=== PATIENT | female | born 1955 | race Caucasian/White ===

== ENCOUNTER 2017-06-28 15:56 | Emergency (ER) | payer OTHER ==
[2017-06-28] MEDS: SOD CHLORIDE 0.9% 500 ML IV (19:22)
[2017-06-28 20:10] LABS: ADD MAN DIFF? NO
[2017-06-28 20:13] LABS: WHITE BLOOD COUNT 11.8 10^3/ul (4.8-10.8)
[2017-06-28 20:13] LABS: BASOPHILS % 0.2 % (0.0-2.0); HEMATOCRIT 43.9 % (37.0-47.0); HEMOGLOBIN 14.3 g/dl (12.0-16.0); LYMPHOCYTES # 1.2 10^3/ul (0.8-2.9); MEAN CORPUSCULAR HGB CONC 32.6 g/dl (32.0-37.0); MEAN PLATELET VOLUME 11.8 fl (7.4-10.4); MONOCYTE # 0.5 10^3/ul (0.3-0.9); NEUTROPHIL # 10.1 10^3/ul (1.6-7.5); NEUTROPHILS % 85.5 % (39.0-77.0); PLATELET COUNT 219 10^3/UL (140-415); RED BLOOD COUNT 4.77 10^6/ul (4.20-5.40); RED CELL DISTRIBUTION WIDTH 13.3 % (11.5-14.5)
[2017-06-28 20:35] LABS: ANION GAP 19 (8-16); BLOOD UREA NITROGEN 20 mg/dl (7-20); CALCIUM 9.9 mg/dl (8.4-10.2); CARBON DIOXIDE 18 mmol/L (21-31); CHLORIDE 104 mmol/L (97-110); CREATININE 0.95 mg/dl (0.44-1.00); GLUCOSE 146 mg/dl (70-220); POTASSIUM 4.8 mmol/L (3.5-5.1); SODIUM 136 mmol/L (135-144)
[2017-06-28] MEDS: morphine 4 MG/ML VIAL IV (20:46)
[2017-06-28 20:58] LABS: TROPONIN-I < 0.012 ng/ml (0.00-0.12)
== END 2017-06-29 01:30 | disposition home or self-care (01) ==
LOC: E/R 06-29 01:30 → FTE 15:56
DX: S42.215A Unspecified nondisplaced fracture of surgical neck of left humerus, initial encounter for closed fracture (principal); H81.10 Benign paroxysmal vertigo, unspecified ear; I10 Essential (primary) hypertension; W19.XXXA Unspecified fall, initial encounter; Y92.9 Unspecified place or not applicable
CPT/HCPCS: 36415; 71045; 71250; 73000; 73030; 73060; 80048; 82962; 84484; 85025; 93005; 96374; 99285-25

== ENCOUNTER 2018-09-24 07:40 | Day surgery (SDC) | payer OTHER ==
[~2018-09-24 07:40] MED LIST: ETOMIDATE 20 MG INJ
[2018-09-24] MEDS: LACTATED RINGER'S 1,000 ML IV (09:17)
[2018-09-24] MEDS ORDERED: FENTAnyl 50 MCG/ML VIAL (10:14)
[2018-09-24] MEDS ORDERED: MIDAZOLAM 1 MG/ML 2 ML INJ (10:14)
[2018-09-24] MEDS ORDERED: PROPOFOL 20 ML (10:58)
[2018-09-24] MEDS ORDERED: ONDANSETRON 4 MG INJ (10:58)
[2018-09-24] MEDS ORDERED: LIDOCAINE 2% (SDV) 5 ML INJ (10:58)
[2018-09-24] MEDS ORDERED: HYDROCODONE/APAP (7.5/325) TAB PO (11:30)
== END 2018-09-24 13:49 | disposition home or self-care (01) ==
LOC: SDS 07:40
DX: H66.91 Otitis media, unspecified, right ear (principal)
CPT/HCPCS: 69436